=== PATIENT | female | born 1995 | race African-American/Black ===

== ENCOUNTER 2019-06-08 10:15 | Emergency (ER) | payer SELFPAY ==
[~2019-06-08] VITALS: Ht 162.6 cm; Wt 57.6 kg
[2019-06-08 10:48] LABS: BILIRUBIN,URINE NEGATIVE (NEG); CLARITY,URINE CLEAR; COLOR,URINE YELLOW; NITRITE,URINE NEGATIVE (NEG); PH,URINE 6.5; PROTEIN,URINE NEGATIVE (NEG-TRACE); UROBILINOGEN,URINE 0.2 mg/dL (0.2 mg/dL)
--- NOTE | 2019-06-08 10:56 | PHYS DOC ---
Past Medical History Additional Information: nonsmoker Adult General Chief Complaint Chief Complaint: VAGINAL BLEEDING HPI HPI Patient is a 23-year-old female that is presenting with 2 months of spotting and a couple days of worsening vaginal bleeding. Patient states that she has been spotting from the beginning of her period and then noticed over the past couple days that she has been waking up with much more blood on her pad Patient states that she has had some shortness of breath and dizziness on standing along with this episode of bleeding. Patient states that she has one partner, she is not on control, she has no burning on urination, increased frequency, vaginal discharge. Patient states that she has crampy abdominal pain that is generalized. Patient denies any trauma. Denies fever, chills, chest pain, nausea, and vomiting. Review of Systems Review of Systems Constitutional: Denies fever or chills Eyes: Denies redness or eye pain HENT: Denies nasal congestion or sore throat Respiratory: Denies cough or shortness of breath Cardiovascular: Denies chest pain or palpitations GI: Denies nausea and vomiting, reports abdominal pain : Reports vaginal bleeding, denies discharge or dysuria Musculoskeletal: Denies back pain or joint pain Integument: Denies rash or skin lesions Neurologic: Denies headache, focal weakness or sensory changes Complete systems were reviewed and found to be within normal limits, except as documented in this note. Current Medications Current Medications Current Medications Medications (Trade) Dose Ordered Sig/Piyush Start Time Stop Time Status Last Admin Dose Admin Azithromycin (Zithromax) 1,000 mg 1X ONCE 06/08/19 12:00 06/08/19 12:01 DC 06/08/19 11:46 1,000 MG Ceftriaxone Sodium (Rocephin Im) 250 mg 1X ONCE 06/08/19 12:00 06/08/19 12:01 DC 06/08/19 11:49 250 MG Lidocaine HCl (Xylocaine-Mpf 1% 2ml Vial) 2 ml STK-MED ONCE 06/08/19 11:44 06/08/19 11:44 DC Allergies Allergies Allergies Coded Allergies Type Severity Reaction Last Updated Verified No Known Drug Allergies 06/08/19 No Physical Exam Physical Exam Constitutional: Well developed, well nourished, no acute distress, non-toxic appearance HENT: Normocephalic, atraumatic, oropharynx moist Eyes: Conjunctiva normal, no discharge Neck: Normal range of motion, no tenderness, supple Cardiovascular: Heart rate normal, regular rhythm Lungs & Thorax: Bilateral breath sounds clear to auscultation, no wheezing Abdomen: Soft, no tenderness Skin: Warm, dry, no erythema, no rash Back: No tenderness, no CVA tenderness Extremities: No tenderness, ROM intact, no edema Genitourinary: Normal external exam, cervical os closed, no pustular drainage from the os, mild around blood draining from the os Neurologic: Alert and oriented X 3, no focal deficits noted Psychologic: Affect normal, judgement normal, mood normal Current Patient Data Vital Signs Vital Signs Date Time Temp Pulse Resp B/P (MAP) Pulse Ox O2 Delivery O2 Flow Rate FiO2 06/08/19 12:55 80 16 122/70 (87) 97 Room Air 06/08/19 10:45 98.3 98.3 Lab Values Laboratory Tests Test 06/08/19 10:25 06/08/19 10:37 06/08/19 10:45 Urine Collection Type Unknown Urine Color Yellow Urine Clarity Clear Urine pH 6.5 Urine Specific [place] 1.020 Urine Protein Negative mg/dL (NEG-TRACE) Urine Glucose (UA) Negative mg/dL (NEG) Urine Ketones (Stick) Negative mg/dL (NEG) Urine Blood Large (NEG) Urine Nitrite Negative (NEG) Urine Bilirubin Negative (NEG) Urine Urobilinogen Dipstick 0.2 mg/dL (0.2 mg/dL) Urine Leukocyte Esterase Small (NEG) Urine RBC 20-40 /HPF (0-2) Urine WBC 20-40 /HPF (0-4) Urine Squamous Epithelial Cells Mod /LPF Urine Bacteria Few /HPF (0-FEW) Urine Mucus Mod /LPF POC Urine HCG, Qualitative Hcg negative (Negative) White Blood Count 4.9 x10^3/uL (4.0-11.0) Red Blood Count 4.50 x10^6/uL (3.50-5.40) Hemoglobin 13.3 g/dL (12.0-15.5) Hematocrit 39.7 % (36.0-47.0) Mean Corpuscular Volume 88 fL (79-100) Mean Corpuscular Hemoglobin 30 pg (25-35) Mean Corpuscular Hemoglobin Concent 34 g/dL (31-37) Red Cell Distribution Width 15.7 % (11.5-14.5) H Platelet Count 251 x10^3/uL (140-400) Neutrophils (%) (Auto) 55 % (31-73) Lymphocytes (%) (Auto) 38 % (24-48) Monocytes (%) (Auto) 6 % (0-9) Eosinophils (%) (Auto) 1 % (0-3) Basophils (%) (Auto) 1 % (0-3) Neutrophils # (Auto) 2.7 x10^3/uL (1.8-7.7) Lymphocytes # (Auto) 1.9 x10^3/uL (1.0-4.8) Monocytes # (Auto) 0.3 x10^3/uL (0.0-1.1) Eosinophils # (Auto) 0.1 x10^3/uL (0.0-0.7) Basophils # (Auto) 0.0 x10^3/uL (0.0-0.2) Prothrombin Time 12.4 SEC (11.7-14.0) Prothrombin Time INR 1.0 (0.8-1.1) Activated Partial Thromboplast Time 32 SEC (24-38) Laboratory Tests 06/08/19 10:45 Microbiology 06/08/19 Wet Prep - Final, Complete EKG EKG [] Radiology/Procedures Radiology/Procedures PROCEDURE: PELVIS COMPLETE EXAM: Pelvis sonogram. HISTORY: Abnormal uterine bleeding. TECHNIQUE: Sonographic imaging of the pelvis was performed. COMPARISON: None. FINDINGS: The uterus measures 8.4 x 4.3 x 3.7 cm. The endometrial stripe measures 5.8 mm. The ovaries are normal in size and demonstrate normal blood flow. There is no pelvic free fluid. IMPRESSION: Unremarkable pelvic sonogram. Electronically signed by: Salome Barnett MD (06/08/2019 12:45 PM) [facility] Course & Med Decision Making Course & Med Decision Making Pertinent Labs and Imaging studies reviewed. (See chart for details) Patient is a at 23-year-old female presenting with vaginal bleeding for 2 months. Patient was seen and evaluated at bedside. Physical exam was significant for mild generalized abdominal tenderness Bedside urine negative. Labs and imaging ordered. Pelvic exam significant for closed cervical os, blood draining from the cervical os, no pustular drainage, normal external exam. Patient elected for prophylactic STI antibiotics. Pelvic ultrasound is negative for acute process. Lab positive for clue cells and Trichomonas, metronidazole given. Patient will be discharged home with antibiotics. Patient stable for discharge with outpatient follow-up with PCP. Discussed findings and plan with patient and family, who acknowledge understanding and agreement. Dragon Disclaimer Dragon Disclaimer This electronic medical record was generated, in whole or in part, using a voice recognition dictation system. Departure Departure Impression: Primary Impression: Abnormal vaginal bleeding Additional Impressions: Trichomonas vaginitis Bacterial vaginitis Disposition: HOME, SELF-CARE Condition: STABLE Referrals: JAKE CRUZ Jr, MD Patient Instructions: Abnormal Uterine Bleeding, Bacterial Vaginosis, [id number], Trichomoniasis-Brief Scripts Metronidazole (FLAGYL) 500 Mg Tablet 500 MG PO BID, #14 TAB Prov: LEIDY ROSS DO 06/08/19 Problem Qualifiers LEIDY ROSS DO Jun 08, 2019 10:56
[2019-06-08 11:05] LABS: BASO % 1 % (0-3); EOS # 0.1 x10^3/uL (0.0-0.7); EOS % 1 % (0-3); HEMATOCRIT 39.7 % (36.0-47.0); HEMOGLOBIN 13.3 g/dL (12.0-15.5); LYMPH # 1.9 x10^3/uL (1.0-4.8); LYMPH % 38 % (24-48); MEAN CORPUSCULAR HEMOGLOBIN 30 pg (25-35); MEAN CORPUSCULAR HGB CONC 34 g/dL (31-37); MEAN CORPUSCULAR VOLUME 88 fL (79-100); MONO # 0.3 x10^3/uL (0.0-1.1); MONO % 6 % (0-9); NEUT # 2.7 x10^3/uL (1.8-7.7); NEUT % 55 % (31-73); PLATELET COUNT 251 x10^3/uL (140-400); RED CELL DISTRIBUTION WIDTH 15.7 % (11.5-14.5); WHITE BLOOD COUNT 4.9 x10^3/uL (4.0-11.0)
[2019-06-08 11:11] LABS: PROTHROMBIN TIME PATIENT 12.4 SEC (11.7-14.0)
[2019-06-08 11:17] LABS: SQUAMOUS EPITHELIAL CELL,UR MOD /LPF
[2019-06-08 11:18] LABS: RBC,URINE 20-40 /HPF (0-2); WBC,URINE 20-40 /HPF (0-4)
[2019-06-08 11:19] LABS: BACTERIA,URINE FEW /HPF (0-FEW)
[2019-06-08] MEDS ORDERED: LIDOCAINE 1% PF 2 ML VIAL. ONE (11:44)
[2019-06-08] MEDS ORDERED: AZITHROMYCIN 250 MG TABLET. PO ONE (12:00)
[2019-06-08] MEDS ORDERED: cefTRIAXone IM 250 MG VIAL IM ONE (12:00)
--- NOTE | 2019-06-08 12:47 | RAD ---
EXAM: Pelvis sonogram. HISTORY: Abnormal uterine bleeding. TECHNIQUE: Sonographic imaging of the pelvis was performed. COMPARISON: None. FINDINGS: The uterus measures 8.4 x 4.3 x 3.7 cm. The endometrial stripe measures 5.8 mm. The ovaries are normal in size and demonstrate normal blood flow. There is no pelvic free fluid. IMPRESSION: Unremarkable pelvic sonogram. Electronically signed by: Salome Barnett MD (06/08/2019 12:45 PM) [facility] [place]
[2019-06-08] MEDS ORDERED: METR500T PO (12:54)
[2019-06-08 12:55] VITALS: BP 122/70
[2019-06-10 21:07] LABS: GC PROBE Negative (Negative)
== END 2019-06-08 13:05 | disposition home or self-care (01) ==
LOC: ER 10:15
DX: N93.9 Abnormal uterine and vaginal bleeding, unspecified (principal); A59.01 Trichomonal vulvovaginitis; N76.0 Acute vaginitis; B96.89 Other specified bacterial agents as the cause of diseases classified elsewhere; R42 Dizziness and giddiness
CPT/HCPCS: 36415; 76856; 81001; 81025; 85025; 85610; 85730; 87086; 87491; 87591; 96372; 99285; J0696; Q0111; Q0144

== ENCOUNTER 2020-11-29 05:05 | Emergency (ER) | payer SELFPAY ==
[~2020-11-29 05:05] MED LIST: METR500T PO
== END 2020-11-29 06:20 | disposition left against medical advice (07) ==
LOC: ER 05:05
DX: R05 Cough (principal); R09.81 Nasal congestion; R06.02 Shortness of breath; J02.9 Acute pharyngitis, unspecified; R11.2 Nausea with vomiting, unspecified; Z53.21 Procedure and treatment not carried out due to patient leaving prior to being seen by health care provider